=== PATIENT | male | born 1930 | race Hispanic/Latino ===

== ENCOUNTER 2018-03-26 06:25 | Day surgery (SDC) | payer MEDICARE, BC ==
[2018-03-20 11:42] VITALS: BMI 26.4
--- NOTE | 2018-03-24 04:20 | HP ---
REASON FOR ADMISSION: Left and right heart catheterization, chest pain, valvular heart disease, shortness of breath. BRIEF CLINICAL HISTORY: This is an 87-year-old male with past medical history significant for hypertension, hyperlipidemia, diabetes, complaining of chest pain, dyspnea on exertion. Patient underwent a stress test that is abnormal. Patient is scheduled for elective cardiac cath, possible angioplasty. PAST MEDICAL HISTORY: Significant for hypertension, hyperlipidemia, borderline diabetes. SOCIAL HISTORY: Denies smoking. Denies any history of alcohol abuse. CURRENT MEDICATIONS: Patient is taking tramadol, multivitamin, aspirin, simvastatin, , trazodone, amlodipine. RECENT CARDIAC WORKUP: As follows, patient had stress test on 02/21/2018 that showed abnormal myocardial perfusion study, fixed defect suggestive of myocardial injury or SC. Patient underwent echocardiography that showed ejection fraction 40%, moderate diastolic dysfunction, [id number] mitral stenosis, moderate mitral regurgitation, mild to moderate aortic regurgitation, mild tricuspid regurgitation, RV systolic pressure 40. By cath ejection fraction 53%, by echo, ejection fraction 40%. REVIEW OF SYSTEMS: As per HPI. PHYSICAL EXAMINATION: VITAL SIGNS: As follows, height of the patient 5 feet 7 inches, weight of the patient 169 pounds, body mass index 26.5 kg/sq m. Blood pressure 130/80, heart rate 60. HEENT: PERRLA. Extraocular muscles intact. NECK: Supple. No carotid bruits or thyromegaly. CHEST: Clear to auscultation. HEART: S1 and S2, regular. ABDOMEN: Soft. EXTREMITIES: Clubbing and cyanosis negative. DIAGNOSTIC DATA: EKG showed left bundle branch block. IMPRESSOIN AND PLAN: An 87-year-old male with past medical history of hypertension, hyperlipidemia, borderline diabetes, valvular heart disease, mitral stenosis, aortic regurgitation, mitral regurgitation, abnormal stress test, scheduled for elective cardiac catheterization. Patient complained of chest pain and dyspnea on exertion on climbing stairs. Seen by Dr. De Guzman and referred for cardiac catheterization. Thank you Dr. De Guzman, for providing us the opportunity in taking care of the patient, Sam Hewitt. Brian Lewis MD [facility] # [id number]
[2018-03-26 06:55] LABS: INR 1.03; PARTIAL THROMBOPLASTIN TIME 32.8 Seconds (25.1-36.5); PROTHROMBIN TIME 11.9 SECONDS (9.4-12.5)
[2018-03-26 06:56] LABS: BLOOD UREA NITROGEN 16 mg/dL (7-21); CALCIUM 9.2 mg/dL (8.4-10.5); GFR NON-AFRICAN AMERICAN > 60; HDL CHOLESTEROL 41 mg/dL (29-60)
[2018-03-26 07:06] LABS: LDL CHOLESTEROL 48 mg/dL (0-129)
[2018-03-26] MEDS ORDERED: Lidocaine PF 2% (5 ml) Inj (For Cardiac Arrhy) ONE (07:06)
[2018-03-26] MEDS ORDERED: Iodixanol 320 MG/ML 200 ML BOTTLE IV ONE (07:07)
[2018-03-26] MEDS ORDERED: Phenylephrine 10 mg/ml Inj ONE (07:07)
[2018-03-26] MEDS ORDERED: Iohexol 350mgl/ml 50 ML ONE (07:07)
[2018-03-26] MEDS ORDERED: Iodixanol 320 MG/ML 100 ML BOTTLE IV ONE (07:07)
[2018-03-26] MEDS ORDERED: Nitroglycerin 50mg in D5W 50 MG/250 ML BOTTLE IV ONE (07:08)
[2018-03-26 07:09] LABS: BASO # 0.03 K/mm3 (0.0-2.0); BASO % 0.3 % (0.0-3.0); EOS # 0.1 (0.0-0.7); EOS % 1.3 % (1.5-5.0); GRAN # 5.89 (1.4-6.5); GRAN % 62.6 % (50.0-68.0); HEMOGLOBIN 13.7 g/dL (14.0-18.0); LYMPH # 2.5 (1.2-3.4); LYMPH % 26.3 % (22.0-35.0); MEAN CORPUSCULAR HGB CONC 33.7 g/dl (31.0-37.0); MEAN PLATELET VOLUME 10.2 fl (7.0-11.0); MONO # 0.9 (0.1-0.6); MONO % 9.5 % (1.0-6.0); RBC 4.56 10^6/uL (3.5-6.1); RED CELL DISTRIBUTION WIDTH 13.6 % (11.5-14.5); WHITE BLOOD COUNT 9.4 10^3/ul (4.5-11.0)
[2018-03-26] MEDS ORDERED: Midazolam 2 MG/2 ML VIAL ONE (08:08)
[2018-03-26 08:13] VITALS: RESP 18
[2018-03-26] MEDS ORDERED: Sodium Chloride 0.9% 1,000 ML IV SCH (09:15)
[2018-03-26 09:38] VITALS: TEMP 98.2
--- NOTE | 2018-03-26 11:42 | CPOSTOP ---
DATE: 03/26/2018 CARDIOVASCULAR LAB POST PROCEDURE NOTE DICTATING PHYSICIAN: Brian Lewis MD [employer]IST[employer] PRINCIPAL: APRYL [place]. TYPE OF ANESTHESIA: Moderate conscious sedation. Total 2 mg of Versed, 100 fentanyl given. PRE-PROCEDURE DIAGNOSIS: Aortic stenosis, cardiomyopathy, shortness of breath, abnormal stress test. PROCEDURE PERFORMED: Complete left and right heart catheterization. FINDINGS: Nonobstructive coronary artery disease, upper limit normal right heart cath. FINAL DIAGNOSIS: Nonobstructive coronary artery disease. POST PROCEDURE CONDITION: Post procedure, the patient's condition is stable. VASCULAR ACCESS SITE: Right femoral groin. CLOSURE DEVICE: Mynx arterial puncture, also the Mynx at the venous site. TOTAL RADIATION DOSE: 5308.55 milligray unit. TOTAL FLUORO TIME: 3.1 minutes. Brian Lewis MD
[2018-03-26 12:28] VITALS: O2SAT 94
[2018-03-26 13:39] VITALS: BP 137/68; PULSE 64
--- NOTE | 2018-03-26 19:04 | CARD ---
APPROVED REPORT Date of service: 03/26/2018 Procedure(s) performed: Complete Heart Catheterization HISTORY The patient is a 87 year-old male with a history of : most recent EF: 53%. (EF Method: RADIONUCLIDE), diabetes mellitus with diet treatment , tobacco history() : The patient is a former smoker , hypertension , dyslipidemia , cerebrovascular disease , Had anabnormal stress test. INDICATION The indication(s) include : positive stress test. CASE TECHNIQUE The patient was brought electively to the Cardiac Catheterization Laboratory in a fasting state and was prepped and draped in a sterile manner. The right femoral groin was infiltrated with 2% Lidocaine subcutaneous anesthesia. A 6Fr Martha sheath was inserted into the right femoral artery without difficulty. Coronary angiography was performed using coronary diagnostic catheters. The left coronary system was accessed and visualized with a Diagnostic ,6F JL4 CATH DXT 100 CM catheter. The right coronary system was accessed and visualized with a Diagnostic ,6F JR 4 CATH DXT 100 CM catheter. The left ventricle was accessed and visualized with a 6F PIGTAIL 145 CATH DXT 110 CM catheter. Left ventricular/Aortic Valve gradient assessed on pullback. Left ventriculogram was performed in FERMIN projection. A Right Heart Catheterization was performed with a 7 Fr. Pollock-Melany catheter and pressure were recorded. A 7 sheath was inserted into the right femoral vein without difficulty. Coronary angiography was performed using coronary diagnostic catheters. Cardiac outputs were obtained by the Thermal Dilution method. Pre-demployment femoral angiogram was performed . Closure device was deployed with a 6 Fr / 7 Fr MynxGrip without any complications. The patient tolerated the procedure well and there were no complications associated with the procedure. Mynx Closure device applied in both RFA and Vein Vessel Analysis The patient's coronary anatomy is right dominant. The left main coronary artery is a large size vessel with diffuse calcification noted throughout this vessel and without significant stenosis. There is a 30-40% stenosis in the distal segment. The left main bifurcates to the left anterior descending and circumflex. The left anterior descending artery is a large size vessel with diffuse calcification noted throughout this vessel and without significant stenosis. There is a 50-55% stenosis in the mid segment. The first diagonal branch is a large size vessel with diffuse calcification noted throughout this vessel and without significant stenosis. The second diagonal branch is a small size vessel with diffuse calcification noted throughout this vessel and without significant stenosis. The circumflex artery is a medium size vessel with diffuse calcification noted throughout this vessel and without significant stenosis. The first obtuse marginal branch is a large size vessel with diffuse calcification noted throughout this vessel and without significant stenosis. The second obtuse marginal branch is a medium size vessel with diffuse calcification noted throughout this vessel and without significant stenosis. There is a 40% stenosis in the mid segment. The right coronary artery is a large size vessel with diffuse calcification noted throughout this vessel and without significant stenosis. There is a 30% stenosis in the mid segment. The right posterior descending artery is a medium size vessel without significant stenosis. The right posterolateral branch is a medium size vessel without significant stenosis. Left Ventricle The left ventricle is borderline enlarged in size with Mildly decreased contractility. Non-Ischemic cardiomyopathy. There was no cardiomyopathy. The left ventricular ejection fraction is estimated to be 45%. The left ventricular end diastolic pressure is 15-18 mmHg. There was no gradient across the aortic valve upon pullback. Right Heart Cath Findings The Right Atrial Pressure is 5 mmHg. The Right Ventricular Pressure is 35/6 mmHg. The Pulmonary Artery Pressure is 35/17 mmHg. with a mean of 23 The Pulmonary Catheter Wedge Pressure is 12-14 mmHg. PVR 2.2 Wood units. The cardiac output and index were assessed using thermo dilution. The Cardiac Output is 4.57 L/min. The Cardiac index is 2.43 L/min/m2. Conclusion Non Obstructive CAD limited to Mid LAD 50-55% Mild to moderate Diz in Cx and RCA. Non Ischemic CMP-EF-45%, EDP-15 mmof hg. RHC: RA-5, RV-35/6. PA -35/17 with a mean of 23, PCW-12-14, CO-4.57 and CI-2.43, PVR-2.2 gutierrez unit. Recommendations Aggressive Medical TherapyCardiac Risk Reduction Program Cc; DRs. Devries/ Gab
== END 2018-03-26 14:20 | disposition home or self-care (01) ==
LOC: CATH 06:25
PROVIDERS: ATTEND Internal Medicine Cardiovascular Disease
DX: I25.10 Atherosclerotic heart disease of native coronary artery without angina pectoris (principal); E11.9 Type 2 diabetes mellitus without complications; E78.5 Hyperlipidemia, unspecified; I10 Essential (primary) hypertension; I42.9 Cardiomyopathy, unspecified; Z87.891 Personal history of nicotine dependence
CPT/HCPCS: 36415; 80048; 80061; 85025; 85610; 85730; 86850; 86900; 93460; 99152; 99153; C1760; C1769; J1644; J2250; J3010; J7030; J7040; Q9966